=== PATIENT | male | born 1960 | race American Indian/Alaskan Native ===

== ENCOUNTER 2017-02-12 16:40 | Observation (INO) | payer MEDICAID ==
[2017-02-12] MEDS ORDERED: Morphine 5 MG/ML SDV IVPUSH ONE (17:05)
[2017-02-12] MEDS ORDERED: LORazepam 1 MG Tab ONE (17:42)
--- NOTE | 2017-02-13 12:30 | CR ---
DATE OF SERVICE: 02/12/17 CLINICAL DATA: chest pain AP PORTABLE CHEST The heart size is normal. The aorta is ectatic. There are linear densities in the right lung base consistent with linear atelectasis or fibrosis. The lungs are otherwise clear. No pneumothorax. No pleural effusions. No other significant findings. [id number] [facility]
--- NOTE | 2017-02-13 13:47 | ER ---
HPI: A 56-year-old male who comes in by ambulance from the senior care with complaints of chest pain. He states, he has had chest pain on and off for about 10 days, but this afternoon it got worse, it feels like a pressure or tightness in the chest. He is pointing to the lower left side of the chest. The patient denies feeling nauseated. He denies being sick recently. He denies any recent falls or injuries. The patient does have history of coronary artery disease. He tells me he has had 2 heart attacks, one in 2011 and the other one in about 2014. He currently is taking Plavix as well as a couple of other medications for his heart, he is unsure what they are. The patient is not from this area. We have no medical records on him here. He was given nitroglycerin 3 times this afternoon over the course of several hours. It did not seem to touch his chest pain or tightness at all. The EMS personnel did give the patient 4 aspirins as well. OBJECTIVE: GENERAL APPEARANCE: The patient is awake and alert. He is in no respiratory distress. VITAL SIGNS: Reviewed. They are normal. HEENT: Oral mucous membranes are moist. Tonsils not enlarged or injected. Pharynx not inflamed. NECK: Supple. LUNGS: Clear. CARDIAC: Heart sounds distinct. S1, S2 present. No murmurs. ABDOMEN : Soft and nontender. SKIN: Warm and dry. LAB AND X-RAY STUDIES: An EKG shows a normal sinus rhythm. Lab work obtained includes a CBC showing elevated monos and eosinophils, otherwise unremarkable. Comprehensive metabolic panel is unremarkable. Troponin is normal. PT is slightly elevated at 14.3. Chest x-ray is normal. At this point, I gave the patient Ativan 1 mg p.o., and this calmed him down and he states the chest pain is better. He was also given morphine 5 mg earlier which did significantly improve his chest pain. After monitoring the patient for about 45 minutes, he is feeling fine, no shortness of breath, no chest pain. At this point, we admitted the patient for observation, so we can get another troponin in 4 hours. The patient is currently discharged from the senior care also at this point. Dz: 1) Chest pain, rule out NV versus Anxiety. CRS/MODL /[id number] MARLO
--- NOTE | 2017-02-14 04:07 | DISCH ---
This patient was admitted from the emergency room for observation for a cardiac rule out, so we were planning on getting a second troponin level after 4 hours in observation. The patient left AMA approximately 2 hours into this timeframe as soon as he arrived. The patient told nursing staff he was feeling fine and he needed to go. He did sign the AMA paperwork. SOFIE/ANA ROSA /[id number]
== END 2017-02-12 19:12 | disposition home or self-care (01) ==
LOC: LB.ED 16:40 → LB.MS 17:53 → UNDOADMOB 18:00 → UNDODISOB 19:12
PROVIDERS: ADMIT Physician Assistant; ATTEND Physician Assistant
DX: R07.9 Chest pain, unspecified (principal); I25.10 Atherosclerotic heart disease of native coronary artery without angina pectoris; Z79.02 Long term (current) use of antithrombotics/antiplatelets
CPT/HCPCS: 36415; 71010; 80053; 84484; 85025; 85610; 93005; 96374; 99285; A9270; J2270; A0425; A0429; G0378